=== PATIENT | female | born 1950 | race Caucasian/White ===

== ENCOUNTER 2025-01-08 10:14 | Outpatient (AMB) | payer MEDICARE, SELFPAY ==
--- NOTE | 2025-01-08 10:29 | A.OFFVIS_ITS ---
Intake Visit Reasons: 6 month PD Allergies codeine Allergy (Unknown, Verified 01/08/25 10:30) Unknown levofloxacin (From Levaquin) Allergy (Unknown, Verified 01/08/25 10:30) Unknown Medication List - Last Reconciled 01/08/25 by Lissa Villela CNP amitriptyline 5 - 10 mg PO BEDTIME carbidopa-levodopa 25-100 mg orally alt 1 tab with 1.5 tabs for total of 4 doses/day; naproxen 250 mg PO BID HPI Comments Details: Tremors were not bad most of the time, some days better than others. She was taking carbidopa-levodopa 4 doses/day for total of 5 tabs/day. She did not like how she felt when taking 6 tabs/day. She may occasionally miss dose and could tell, and would take dose when she remembered. Her sister had told her she saw some tremors in right hand, but patient has not noticed this herself. No functional impairment. No difficulty eating, drinking, or swallowing. Voice was bit softer. She has some trouble turning in bed and getting out of chair. Knees feel stiff more often, better after walking. Balance off at times, using cane, no falls. Sleep was up and down. She was sometimes waking her sister up from kicking and yelling in her sleep, but has not happened recently. Headaches were controlled with amitriptyline. Memory was not so good, more forgetful. She was having trouble with basic math and had her sister take over managing her checkbook. She also got lost driving to appointment today and had to ask for directions. Shares a bed with her sister. Has some night terrors, was told she sometimes kicks and yells in sleep. Tired during the day and sometimes naps. Previously, had stiffness in the left hand 4th and 5th fingers. Very tired at times. Sleeps 7-8 hrs. Left hand tremor. Mobility is generally good. Hips get stiff. Slower in doing things. No functional impairment from it. Chronic muscle tension type headaches that has been treated here for 30 years. Been doing very well taking just amitriptyline 5 mg at bedtime. Her headaches are completely controlled. [facility] Medical History (Updated 01/08/25 @ 11:02 by Lissa Villela CNP) GERD (gastroesophageal reflux disease) Surgical History (Updated 01/01/25 @ 10:53 by Lissa Villela CNP) S/P hysterectomy Review of Systems Const Denies chills, Denies daytime sleepiness, Reports difficulty sleeping, Reports fatigue, Denies fever(s), Denies frequent falls, Reports headache(s), Denies increased appetite, Denies poor appetite, Denies snoring, Denies weakness, Denies weight gain and Denies weight loss Eyes Denies loss of vision ENT Denies vertigo, Denies dizziness, Reports headache(s) and Denies neck pain Card Denies chest pain at rest, Denies chest pain with activity, Denies syncope, Denies leg edema, Denies palpitations, Denies dyspnea and Denies dyspnea on exertion Resp Denies cough, Denies dyspnea, Denies dyspnea on exertion and Denies snoring GI Denies abdominal pain, Denies constipation, Denies heartburn, Denies diarrhea and Denies nausea Denies urinary frequency, Denies urinary incontinence and Denies urinary urgency Musc Denies abnormal gait, Denies back pain, Denies myalgias, Denies arthralgias, Denies neck pain, Denies numbness and Denies tingling Neuro Denies abnormal gait, Denies vertigo, Denies dizziness, Denies syncope, Denies frequent falls, Reports headache(s), Denies lack of coordination, Denies loss of vision, Denies memory loss, Denies numbness, Denies Other visual disturbances, Denies restless legs, Denies seizure-like activity, Denies tingling, Denies paresthesias, Reports tremor(s) and Denies weakness Psych Denies anxiety, Reports depression, Denies auditory hallucinations, Denies memory loss and Denies visual hallucinations Endo Reports fatigue and Denies palpitations Physical Exam Const Other: General Appearance:? normal, in no acute distress. Heart:? S1, S2 normal, no murmurs. Lungs:? clear anteriorly and posteriorly. Musculoskeletal:? normal. Extremities:? no edema. Psych:? alert, oriented, cognitive function intact, cooperative with exam. Neuro Other: Abnormal Neurological Findings: Resting tremor of LUE and LLE. Slight forward leaning posture. Slightly shuffled gait and reduced arm swing. Reduced facial expressions and decreased blinking frequency. Mild increase in tone to BUE. Bradykinesia. Mental Status: alert and oriented X 3. Normal attention, orientation, memory, and affect. Cranial Nerves: Pupils are equal, round, and reactive to light. External ocular muscles are intact. Visual [place] are full, no ptosis. Face is symmetrical, no facial weakness or droop. Facial sensations are normal. Tongue protrudes in midline. Palate elevates symmetrically. Shoulder shrugging is normal Motor Examination: Normal muscle tone, bulk and strength. No atrophy or fasciculations. No drift of the extended upper extremities. DTR 2+. Plantars are flexor. Sensory Exam: Normal light touch, temperature, pinprick, vibration, and joint- position sensations. Rhomberg sign is absent. Coordination: No ataxia. No titubation. Gait Exam: As above. Cerebellar Signs: [id number] is okay. Extrapyramidal System: As above. Speech: Normal. Assessment & Plan Assessment & Plan (1) Parkinsons disease: Code(s): G20 - Parkinson's disease Category: Medical Plan: Increase carbidopa-levodopa 25-100mg 1 tablet once a day and 1.5 tablet three times a day (8am - 1 tablet, 12pm - 1.5 tablets, 4pm - 1.5 tablets, 8pm - 1.5 tablets) for total of 4 doses/day, 5.5 tabs/day. (2) Chronic tension headache: Code(s): G44.229 - Chronic tension-type headache, not intractable Category: Medical Qualifiers: Intractability: not intractable Qualified Code(s): G44.229 - Chronic tension-type headache, not intractable Plan: Continue amitriptyline 10mg 1/2 - 1 tablet at bedtime. (3) REM sleep behavior disorder: Code(s): G47.52 - REM sleep behavior disorder Category: Medical Plan: She was not interested in trying medication for this. (4) MCI (mild cognitive impairment): Code(s): G31.84 - Mild cognitive impairment of uncertain or unknown etiology Category: Medical Plan: Labs and EEG ordered. Orders: Orders Vitamin B12 and Folate Today G31.84 - Mild cognitive impairment of uncertain or unknown etiology EEG Routine Today G31.84 - Mild cognitive impairment of uncertain or unknown etiology TSH reflex Free T4 Today G31.84 - Mild cognitive impairment of uncertain or unknown etiology Medications: New amitriptyline 5 - 10 mg (0.5 - 1 x 10 mg) PO BEDTIME 90 tabs 1RF 90 days carbidopa-levodopa 25-100 mg orally alt 1 tab with 1.5 tabs for total of 4 doses/day; 90 days 450 tabs 1RF carbidopa-levodopa 25-100 mg orally 1 tablet once a day and 1.5 tablets three times a day 495 tabs 1RF 90 days Coding Level of Care Code Est Pt Level 4 (30817) Diagnoses Parkinsons disease G20 Chronic tension-type headache, not intractable G44.229 Intractability: not intractable REM sleep behavior disorder G47.52 MCI (mild cognitive impairment) G31.84
== END 2025-01-08 11:10 | disposition home or self-care (01) ==
PROVIDERS: PCP Internal Medicine; Referring Provider Internal Medicine; Visit Provider Registered Nurse
DX: G20.C Parkinsonism, unspecified (principal); G44.229 Chronic tension-type headache, not intractable; G47.52 REM sleep behavior disorder; G31.84 Mild cognitive impairment of uncertain or unknown etiology
CPT/HCPCS: 99214

== ENCOUNTER → 2025-01-08 10:14 | Outpatient (BNVA) | payer MEDICARE, SELFPAY | PROVIDERS: PCP Internal Medicine; Referring Provider Internal Medicine; Visit Provider Registered Nurse | DX: G20.C Parkinsonism, unspecified (principal); G31.84 Mild cognitive impairment of uncertain or unknown etiology; G47.52 REM sleep behavior disorder; G44.229 Chronic tension-type headache, not intractable | CPT/HCPCS: 99212 ==

== ENCOUNTER 2025-02-09 10:10 | Outpatient (REF) | payer MEDICARE, BC, SELFPAY ==
--- NOTE | 2025-02-09 11:40 | EEG_ITS ---
History: Memory was not so good, more forgetful. She was having trouble with basic math and had her sister take over managing her checkbook. She also got lost driving to appointment today and had to ask for directions. Has some night terrors, was told she sometimes kicks and yells in sleep. Tired during the day and sometimes naps. Previously, had stiffness in the left hand 4th and 5th fingers. Very tired at times. Sleeps 7-8 hrs. Left hand tremor. Mobility is generally good. Hips get stiff. Slower in doing things. No functional impairment from it. Chronic muscle tension type headaches that has been treated here for 30 years. Been doing very well taking just amitriptyline 5 mg at bedtime. Her headaches are completely controlled. 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 Patient is reported awake and sleep during the tracing. Most of the EEG is in theta range with amplitude of 5-50 microvolt. During later part of the tracing, asymmetric right temporal area slowing was noted with intermittent sharp waves. Photic stimulation did not produce any significant driving. Hyperventilation was not performed. Cardiac lead did not reveal any significant arrhythmia. Some lead and muscle artifacts were noted. Impression: Abnormal EEG suggestive of right temporal irritability. MTDD
== END 2025-02-09 10:11 | disposition home or self-care (01) ==
LOC: HO.NEURO 10:10
PROVIDERS: PCP Internal Medicine; Visit Provider Registered Nurse
DX: G31.84 Mild cognitive impairment of uncertain or unknown etiology (principal)
CPT/HCPCS: 95819

== ENCOUNTER → 2025-02-09 11:40 | Outpatient (BNV) | payer MEDICARE, BC, SELFPAY | PROVIDERS: PCP Internal Medicine; Visit Provider Psychiatry & Neurology Neurology | DX: G31.84 Mild cognitive impairment of uncertain or unknown etiology (principal) | CPT/HCPCS: 95819 ==